=== PATIENT | female | born 1980 | race Caucasian/White ===

== ENCOUNTER 2018-06-19 06:08 | Inpatient (IN) | payer OTHER, MEDICAID ==
[2018-06-19] MEDS ORDERED: ROCURONIUM 50 MG INJ ×2 (07:38→09:53)
[2018-06-19] MEDS ORDERED: PROPOFOL 20 ML (07:38)
[2018-06-19] MEDS ORDERED: NEOSTIGMINE 3 MG/3 ML SYRINGE ×2 (07:38→08:30)
[2018-06-19] MEDS ORDERED: GLYCOPYRROLATE 0.4 MG INJ ×2 (07:38→08:30)
[2018-06-19] MEDS ORDERED: SUCCINYLCHOLINE CHLORIDE 100 MG/5 ML SYG IV (07:38)
[2018-06-19] MEDS ORDERED: LIDOCAINE 2% (SDV) 5 ML INJ (07:38)
[2018-06-19] MEDS ORDERED: MEPERIDINE 100 MG INJ (07:38)
[2018-06-19] MEDS: CEFAZOLIN 1 GM/50 ML (PMX) 50 ML IVPB ×5 (08:00→16:26)
[2018-06-19] MEDS ORDERED: ONDANSETRON 4 MG INJ IV ×2 (08:00→09:00)
[2018-06-19] MEDS ORDERED: IBUPROFEN 600 MG TAB PO (08:00)
[2018-06-19] MEDS ORDERED: CEFAZOLIN 1 GM INJ (08:29)
[2018-06-19] MEDS ORDERED: METOCLOPRAMIDE 10 MG INJ (08:30)
[2018-06-19] MEDS ORDERED: ONDANSETRON 4 MG INJ (08:30)
[2018-06-19] MEDS ORDERED: LABETALOL HCL 20MG INJ IV (09:00)
[2018-06-19] MEDS ORDERED: FENTAnyl 50 MCG/ML VIAL IV ×2 (09:00)
[2018-06-19] MEDS ORDERED: METOCLOPRAMIDE 10 MG INJ IV (09:00)
[2018-06-19] MEDS ORDERED: OXYCODONE/ACETAMINOPHEN (5/325) TAB PO ×2 (09:00)
[2018-06-19] MEDS ORDERED: DIPHENHYDRAMINE 50 MG INJ IV (09:00)
[2018-06-19] MEDS ORDERED: MIDAZOLAM 1 MG/ML 2 ML INJ IV (09:00)
[2018-06-19] MEDS ORDERED: MEPERIDINE 25 MG INJ IV (09:00)
[2018-06-19] MEDS ORDERED: HYDROmorphONE 1 MG/5 ML IV SYRINGE IV (09:00)
[2018-06-19] MEDS ORDERED: EPHEDrine SULFATE 50 MG/5 ML SYG IV (09:00)
[2018-06-19] MEDS ORDERED: hydrALAzine 20 MG INJ IV (09:00)
[2018-06-19] MEDS: HYDROmorphONE 1 MG/5 ML IV SYRINGE IV ×3 (10:18→10:39)
[2018-06-19] MEDS: FENTAnyl 50 MCG/ML VIAL IV (10:43)
[2018-06-19] MEDS: morphine 2 MG INJ IV ×3 (14:13→21:36)
[2018-06-19] MEDS: POLYETHYLENE GLYCOL 17 GM PACKET PO ×2 (17:25→19:26)
[2018-06-19] MEDS: HYDROCODONE/APAP (5/325) TAB PO (21:11)
[2018-06-20 05:23] LABS: ADD MAN DIFF? NO
[2018-06-20 05:26] LABS: BASOPHILS % 0.1 % (0.0-2.0); EOSINOPHILS % 0.1 % (0.0-7.0); HEMATOCRIT 40.5 % (37.0-47.0); HEMOGLOBIN 13.8 g/dl (12.0-16.0); LYMPHOCYTES # 1.8 10^3/ul (0.8-2.9); LYMPHOCYTES % 12.5 % (15.0-51.0); MEAN CORPUSCULAR HEMOGLOBIN 30.2 pg (29.0-33.0); MEAN CORPUSCULAR HGB CONC 34.1 g/dl (32.0-37.0); MEAN CORPUSCULAR VOLUME 88.6 fl (82.0-101.0); MEAN PLATELET VOLUME 9.8 fl (7.4-10.4); MONOCYTE # 1.4 10^3/ul (0.3-0.9); MONOCYTES % 9.2 % (0.0-11.0); NEUTROPHIL # 11.4 10^3/ul (1.6-7.5); NEUTROPHILS % 77.8 % (39.0-77.0); PLATELET COUNT 314 10^3/UL (140-415); RED BLOOD COUNT 4.57 10^6/ul (4.20-5.40); RED CELL DISTRIBUTION WIDTH 13.2 % (11.5-14.5)
[2018-06-20 05:26] LABS: WHITE BLOOD COUNT 14.7 10^3/ul (4.8-10.8)
[2018-06-20] MEDS: morphine 2 MG INJ IV ×2 (06:13→20:59)
[2018-06-20 06:31] LABS: ANION GAP 9 (5-13); BLOOD UREA NITROGEN 6 mg/dl (7-20); CALCIUM 8.4 mg/dl (8.4-10.2); CARBON DIOXIDE 25 mmol/L (21-31); CHLORIDE 102 mmol/L (97-110); CREATININE 0.37 mg/dl (0.44-1.00); Estimated GFR > 60 mL/min (>60); GLUCOSE 127 mg/dl (70-220); POTASSIUM 3.8 mmol/L (3.5-5.1); SODIUM 136 mmol/L (135-144)
[2018-06-20] MEDS: POLYETHYLENE GLYCOL 17 GM PACKET PO ×2 (08:06→20:04)
[2018-06-20] MEDS: HYDROCODONE/APAP (5/325) TAB PO ×3 (08:07→21:33)
[2018-06-20] MEDS: KETOROLAC 30 MG INJ IV (09:27)
[2018-06-20] MEDS ORDERED: HYDROCODONE/APAP (5/325) TAB PO (09:30)
[2018-06-20] MEDS: ENOXAPARIN 40 MG/0.4 ML SYG SC (09:34)
[2018-06-20] MEDS: MAGNESIUM CITRATE 300 ML BTL PO ×2 (13:00→20:03)
[2018-06-20] MEDS: BISACODYL (EC) 5 MG TAB PO (15:00)
[2018-06-20] MEDS: BISACODYL 10 MG SUPP PR (20:04)
[2018-06-21] MEDS: HYDROCODONE/APAP (5/325) TAB PO ×3 (05:40→18:13)
[2018-06-21] MEDS: POLYETHYLENE GLYCOL 17 GM PACKET PO ×2 (08:48→21:06)
[2018-06-21] MEDS: ENOXAPARIN 40 MG/0.4 ML SYG SC (08:48)
[2018-06-22] MEDS: POLYETHYLENE GLYCOL 17 GM PACKET PO ×2 (08:55→09:15)
[2018-06-22] MEDS: ENOXAPARIN 40 MG/0.4 ML SYG SC (09:01)
[2018-06-22] MEDS: HYDROCODONE/APAP (5/325) TAB PO (09:54)
== END 2018-06-22 11:30 | disposition home or self-care (01) | DRG 743 ==
LOC: REC 06:08 → 2NE 10:55
PROVIDERS: Specialist
PROC: 0UT90ZZ Resection of Uterus, Open Approach (ICD-10-PCS; principal; 2018-06-19 07:30)
PROC: 0UT70ZZ Resection of Bilateral Fallopian Tubes, Open Approach (ICD-10-PCS; 2018-06-19 07:30)
PROC: 0UB00ZZ Excision of Right Ovary, Open Approach (ICD-10-PCS; 2018-06-19 07:30)
DX: D25.1 Intramural leiomyoma of uterus (principal); N92.1 Excessive and frequent menstruation with irregular cycle; N83.201 Unspecified ovarian cyst, right side
CPT/HCPCS: 80048; 85025; 87086; 88305; 93005